=== PATIENT | female | born 1965 | race Caucasian/White ===

== ENCOUNTER 2016-12-07 22:32 | Emergency (ER) | payer OTHER ==
[~2016-12-07] VITALS: Ht 170.2 cm; Wt 86.4 kg
[~2016-12-07 22:32] MED LIST: ADVAIR 100/501 DISK IH; ADVAIR 250/501 DISK IH; ADVAIR 500/501 DISK IH; AMBIEN10 MG; AMBIEN10 MG PO; AMBIEN5 M1 PO; ASPIRIN EC325 MG PO; ATARAX,VISTARIL50 MG PO; AVENTYL,PAMELOR10 MG PO; Ambien PO; Aspirin Chewable PO; BUDEPRION SR150 MG PO; BUSPAR15 MG PO; BUSPAR5 MG PO; BUSPIRONE HCL15 MG PO; CEPHALEXIN500 MG PO; CHANTIX0.5 MG PO; CHANTIX1 MG PO; CLINDAMYCIN HC300 MG PO; CLONAZEPAM1 M1 PO; CYCLOBENZAPRINE 10 M; CYCLOBENZAPRINE10 MG PO; CYTOMEL25 MCG PO; Cipro PO; DESYREL100 MG PO; DICLOFENAC SODI75 MG; DOCUSATE SODIU100 MG PO; EFFEXOR XR150 MG PO; ELAVIL10 MG PO; ENDOCET 5-3251 EACH; Ecotrin PO; Effexor XR; FLEXERIL10 MG PO; FOCALIN10 MG PO; GABAPENTIN300 MG PO; GABAPENTIN600 MG PO; HUMALOG100 UNIT/1 SC; HYDROCODON-ACE1 EACH; INDERAL60 MG PO; INJECT-EASE1 EACH MC; Inderal LA PO; KLONOPIN0.5 M1 PO; LAMICTAL100 MG PO; LATUDA120 MG PO; LATUDA80 MG PO; LEVAQUIN500 MG PO; LEVEMIR FL100 UNIT/1 SC; LEVEMIR100 UNIT/2 SC; LEVOFLOXACIN500 MG PO; LEVOTHROID50 MCG PO; LEVOTHYROXINE100 MCG PO; LEVOTHYROXINE125 MCG PO; LISINOPRIL10 MG PO; LISINOPRIL20 MG PO; LITHOBID300 MG PO; LOPRESSOR25 MG PO; LORTAB 5-500 T1 EACH PO; LYRICA100 MG PO; Lopid PO; MELOXICAM7.5 MG; METFORMIN HCL500 MG PO; MINIPRESS2 MG PO; MINIPRESS5 MG PO; MORPHINE SULFAT15 M1 PO; MOTRIN IB200 MG PO; MOTRIN800 MG PO; MS CONTIN,ORAMO15 M1 PO; NAPROSYN500 MG; NAPROXEN500 MG PO; NEURONTIN100 MG; NEURONTIN100 MG PO; OMEPRAZOLE40 M1 PO; OXCARBAZEPINE150 MG PO; OXECTA5 MG PO; OXYCODONE HCL10 MG PO; PANTOPRAZOLE SO40 MG PO; PERCOCET 10/1 TABLET PO; PHENERGAN12.5 M1 PO; PRAZOSIN HCL2 MG; PRAZOSIN HCL5 MG PO; PROPANALOL; PROPRANOLOL HCL60 MG; PROPRANOLOL HCL60 MG PO; PROTONIX40 MG PO; PROZAC20 M1 PO; RANITIDINE HCL150 MG PO; RAYOS5 MG PO; RIBASPHERE200 M1 PO; RIBAVIRIN200 M1 PO; RISPERDAL2 MG PO; ROZEREM8 MG PO; SEROQUEL XR150 MG PO; SOVALDI400 MG PO; SYNTHROID75 MCG PO; TAMSULOSIN HCL0.4 MG PO; TOPAMAX25 MG PO; TORADOL10 MG PO; TRAMADOL HCL50 MG; TRAZODONE HCL100 MG PO; TRAZODONE HCL50 MG PO; ULTRAM50 MG PO; VOLTAREN75 MG PO; WELLBUTRIN SR150 MG PO; WELLBUTRIN XL300 MG PO; XANAX0.5 MG PO; XARELTO1 EACH PO; XARELTO20 MG PO; ZANAFLEX4 MG PO; ZOFRAN4 MG PO; ZOLPIDEM TARTRA10 MG PO; ZYVOX600 MG PO; humalog SC; oxyCODONE PO
[2016-12-07 23:54] LABS: HEMATOCRIT 41.4 % (36.0-46.0); MCH 30.3 PG (29.0-34.0); MCHC 33.1 G/DL (30.0-36.0); MCV 91.6 FL (83-99); MEAN PLAT.VOLUME 9.5 uM^3 (9.5-12.4); PLATELET COUNT 359 K/uL (156-360); RBC DIS.WIDTH-CV 14.3 % (11.8-14.6); RBC DIS.WIDTH-SD 48.2 % (39-53); RED BLOOD COUNT 4.52 M/uL (3.80-5.20)
[2016-12-08 00:10] LABS: CHLORIDE 103 mEq/L (99-109); POTASSIUM 3.7 mEq/L (3.7-5.4); SODIUM 136 mEq/L (136-147)
[2016-12-08 00:11] LABS: GLUCOSE 100 mg/dL (70-99)
[2016-12-08 00:13] LABS: ANION GAP 7 MEQ/L (2-14)
[2016-12-08 00:15] LABS: GFR ESTIMATE (CALCULATED) > 59 mL/min/
[2016-12-08 00:16] LABS: TROP-I INTERPRETATION NEGATIVE; TROPONIN-I < 0.01 ng/mL (0.0-0.30); UREA NITROGEN (BUN) 13 mg/dL (9-23)
[2016-12-08 01:00] LABS: PROTHROMBIN TIME 10.1 (9.2-11.2); PTT 38.6 (25-32)
[2016-12-08 01:04] LABS: TOTAL BILIRUBIN 0.4 mg/dL (0.0-1.0)
[2016-12-08 01:05] LABS: ALKALINE PHOSPHATASE 121 IU/L (3-129)
[2016-12-08 01:07] LABS: DIRECT BILIRUBIN 0.2 mg/dL (0.0-0.3)
[2016-12-08 01:08] LABS: LIPASE 9 U/L (1.0-51.0)
[2016-12-08 02:16] LABS: ADD MIUA? YES; BILIRUBIN NEGATIVE; BLOOD MODERATE; COLOR YELLOW ((YELLOW)); GLUCOSE (STRIP) NEGATIVE; KETONES NEGATIVE; LEUKOCYTES NEGATIVE; NITRITE NEGATIVE; PROTEIN (STRIP) 30; SPECIFIC GRAVITY 1.023 (1.000-1.030)
[2016-12-08 02:21] LABS: BACTERIA RARE /HPF; EPITHELIAL CELLS RARE /HPF; MUCUS 2+ /LPF; RED BLOOD CELLS 20-30 /HPF (0-5); UCUL ADDED? NO; WHITE BLOOD CELLS 0-5 /HPF (0-5)
[2016-12-08] MEDS ORDERED: CARAFATE100 MG/ML PO (04:36)
[2016-12-08] MEDS ORDERED: ZOFRAN4 MG PO (04:38)
[2016-12-08] MEDS ORDERED: PEN-VEE K,VEET500 MG PO (04:38)
[2016-12-08 05:00] VITALS: BP 98/63
== END 2016-12-08 05:03 | disposition home or self-care (01) ==
LOC: EME 22:32
PROVIDERS: Emergency Medicine
DX: R10.9 Unspecified abdominal pain (principal); G89.29 Other chronic pain; M54.5 Low back pain; K21.9 Gastro-esophageal reflux disease without esophagitis; Z98.84 Bariatric surgery status; Z87.442 Personal history of urinary calculi; E03.9 Hypothyroidism, unspecified; E11.9 Type 2 diabetes mellitus without complications; I10 Essential (primary) hypertension; J44.9 Chronic obstructive pulmonary disease, unspecified; Z79.84 Long term (current) use of oral hypoglycemic drugs; F17.200 Nicotine dependence, unspecified, uncomplicated
CPT/HCPCS: 71020; 74177; 80048; 80076; 81003; 83605; 83690; 84484; 85027; 85610; 85730; 87040; 93005; 99281; 99285; C9113; J2270; J2405; J7030

== ENCOUNTER 2017-02-16 07:34 | Day surgery (SDC) | payer OTHER ==
[~2017-02-16] VITALS: Ht 167.6 cm; Wt 79.8 kg
[~2017-02-16 07:34] MED LIST changes: +CARAFATE100 MG/ML PO; +DICLOFENAC SODI50 MG PO; +GABAPENTIN800 MG PO; +LEXAPRO20 MG PO; +PEN-VEE K,VEET500 MG PO; +SEROQUEL100 MG PO
[2017-02-16] MEDS ORDERED: LEVO-T50 MCG PO (07:47)
== END 2017-02-16 09:00 | disposition home or self-care (01) ==
LOC: PAIN 07:34
DX: M47.26 Other spondylosis with radiculopathy, lumbar region (principal); M51.16 Intervertebral disc disorders with radiculopathy, lumbar region; M54.2 Cervicalgia; B18.2 Chronic viral hepatitis C; F41.8 Other specified anxiety disorders; K21.9 Gastro-esophageal reflux disease without esophagitis; I10 Essential (primary) hypertension; J44.9 Chronic obstructive pulmonary disease, unspecified; E78.00 Pure hypercholesterolemia, unspecified; E03.9 Hypothyroidism, unspecified; G47.33 Obstructive sleep apnea (adult) (pediatric); Z98.84 Bariatric surgery status; Z88.2 Allergy status to sulfonamides; F17.200 Nicotine dependence, unspecified, uncomplicated
CPT/HCPCS: J1100; J2250; J3010

== ENCOUNTER 2017-03-17 09:09 | Day surgery (SDC) | payer OTHER ==
[~2017-03-17] VITALS: Ht 167.6 cm; Wt 79.4 kg
[~2017-03-17 09:09] MED LIST changes: +LEVO-T50 MCG PO
== END 2017-03-17 10:55 | disposition home or self-care (01) ==
LOC: PAIN 09:09
DX: M47.26 Other spondylosis with radiculopathy, lumbar region (principal); M51.16 Intervertebral disc disorders with radiculopathy, lumbar region; M48.06 Spinal stenosis, lumbar region; I10 Essential (primary) hypertension; E11.65 Type 2 diabetes mellitus with hyperglycemia; E03.9 Hypothyroidism, unspecified; F32.9 Major depressive disorder, single episode, unspecified; B18.2 Chronic viral hepatitis C; G47.33 Obstructive sleep apnea (adult) (pediatric); F17.200 Nicotine dependence, unspecified, uncomplicated; Z79.891 Long term (current) use of opiate analgesic
CPT/HCPCS: J1100; J1885; J2250; J3010

== ENCOUNTER 2017-05-05 21:05 | Observation (INO) | payer OTHER ==
[~2017-05-05] VITALS: Ht 167.6 cm; Wt 81.1 kg
[2017-05-05 21:41] LABS: HEMATOCRIT 32.3 % (36.0-46.0); MCH 30.8 PG (29.0-34.0); MCHC 32.8 G/DL (30.0-36.0); MCV 93.9 FL (83-99); PLATELET COUNT 190 K/uL (156-360); RBC DIS.WIDTH-CV 17.2 % (11.8-14.6); RBC DIS.WIDTH-SD 59.7 % (39-53); RED BLOOD COUNT 3.44 M/uL (3.80-5.20); WHITE BLOOD COUNT 6.3 K/uL (4.1-10.2)
[2017-05-05 21:50] LABS: PROTHROMBIN TIME 11.9 SEC (10.2-12.9)
[2017-05-05 21:53] LABS: PTT 25.3 SEC (25-37)
[2017-05-05 21:54] LABS: CHLORIDE 115 mEq/L (99-109); POTASSIUM 3.4 mEq/L (3.7-5.4); SODIUM 144 mEq/L (136-147)
[2017-05-05 21:55] LABS: GLUCOSE 98 mg/dL (70-99)
[2017-05-05 21:57] LABS: ANION GAP 9 MEQ/L (2-14)
[2017-05-05 21:59] LABS: GFR ESTIMATE (CALCULATED) > 59 mL/min/
[2017-05-05 22:00] LABS: UREA NITROGEN (BUN) 6 mg/dL (9-23)
[2017-05-05 22:04] LABS: TROP-I INTERPRETATION NEGATIVE; TROPONIN-I < 0.01 ng/mL (0.0-0.30)
[2017-05-05] MEDS ORDERED: LEXAPRO10 MG PO (22:40)
[2017-05-05] MEDS ORDERED: DEXILANT60 MG PO (22:41)
[2017-05-05] MEDS ORDERED: ATARAX,VISTARIL25 MG PO (22:41)
[2017-05-05] MEDS ORDERED: MORPHINE SULFAT15 M1 PO (22:42)
[2017-05-05] MEDS ORDERED: INDOCIN50 MG PO (22:42)
[2017-05-05 22:46] LABS: TOTAL BILIRUBIN 0.1 mg/dL (0.0-1.0)
[2017-05-05 22:48] LABS: ALKALINE PHOSPHATASE 88 IU/L (3-129); SERUM ETHYL ALCOHOL < 10 mg/dL
[2017-05-05 22:50] LABS: DIRECT BILIRUBIN 0.1 mg/dL (0.0-0.3)
[2017-05-06 00:51] VITALS: BP 124/83
[2017-05-06 04:10] VITALS: BP 99/50
[2017-05-06 08:30] VITALS: BP 123/77
[2017-05-06 09:07] LABS: POINT-OF-CARE METER ID UU13113700
[2017-05-06 10:37] LABS: HEMATOCRIT 32.6 % (36.0-46.0); MCH 30.3 PG (29.0-34.0); MCHC 31.9 G/DL (30.0-36.0); MEAN PLAT.VOLUME 10.2 uM^3 (9.5-12.4); PLATELET COUNT 216 K/uL (156-360); RBC DIS.WIDTH-CV 17.5 % (11.8-14.6); RBC DIS.WIDTH-SD 61.4 % (39-53); RED BLOOD COUNT 3.43 M/uL (3.80-5.20); WHITE BLOOD COUNT 5.5 K/uL (4.1-10.2)
[2017-05-06 10:58] LABS: TROP-I INTERPRETATION NEGATIVE; TROPONIN-I < 0.01 ng/mL (0.0-0.30)
[2017-05-06 11:12] LABS: ALKALINE PHOSPHATASE 80 IU/L (3-129); ANION GAP 5 MEQ/L (2-14); CHLORIDE 117 MEQ/L (99-109); GFR ESTIMATE (CALCULATED) > 59 mL/min/; GLUCOSE 97 mg/dL (70-99); SAMPLE HEMOLYSIS CHECK 0; SAMPLE ICTERIC CHECK 0; SAMPLE LIPEMIA CHECK 0; SODIUM 144 MEQ/L (136-147); TOTAL BILIRUBIN 0.2 MG/DL (0.0-1.0); UREA NITROGEN (BUN) 6 mg/dL (9-23)
[2017-05-06 11:13] LABS: Estimated Average Glucose 94 mg/dL (70-123); HEMOGLOBIN A1c (GLYCOHEMOGLOB) 4.9 % HGB (Below 5.7); POTASSIUM 4.3 MEQ/L (3.7-5.4)
[2017-05-06 11:27] VITALS: BP 120/74
[2017-05-06 11:29] VITALS: BP 125/77; BP 125/80
== END 2017-05-06 14:03 | disposition home or self-care (01) ==
LOC: EME → EDBD 21:05 → EDOF 22:28 → 5WEST 22:28 → ENRESERV 22:30 → 5WEST 05-06 00:29
PROVIDERS: Emergency Medicine; Hospitalist; Physician Assistant Medical
DX: I95.1 Orthostatic hypotension (principal); I71.2 Thoracic aortic aneurysm, without rupture; Z98.84 Bariatric surgery status; Z86.711 Personal history of pulmonary embolism; R47.81 Slurred speech; I48.0 Paroxysmal atrial fibrillation; F31.9 Bipolar disorder, unspecified; F41.9 Anxiety disorder, unspecified; Z91.5 Personal history of self-harm; B19.20 Unspecified viral hepatitis C without hepatic coma; G89.29 Other chronic pain; J44.9 Chronic obstructive pulmonary disease, unspecified; E78.5 Hyperlipidemia, unspecified; F17.210 Nicotine dependence, cigarettes, uncomplicated; G47.33 Obstructive sleep apnea (adult) (pediatric); Z91.19 Patient's noncompliance with other medical treatment and regimen; E11.9 Type 2 diabetes mellitus without complications; E03.9 Hypothyroidism, unspecified; Z87.442 Personal history of urinary calculi; F19.11 Other psychoactive substance abuse, in remission; Z79.891 Long term (current) use of opiate analgesic; E66.3 Overweight; Z68.28 Body mass index [BMI] 28.0-28.9, adult; E87.6 Hypokalemia; E87.8 Other disorders of electrolyte and fluid balance, not elsewhere classified; D64.9 Anemia, unspecified; Z82.49 Family history of ischemic heart disease and other diseases of the circulatory system; Z88.5 Allergy status to narcotic agent; Z88.2 Allergy status to sulfonamides
CPT/HCPCS: 70450; 71020; 71275; 80048; 80053; 80076; 81003; 82948; 83036; 83880; 84443; 84484; 85027; 85379; 85610; 85730; 93005; 94640; 99281; 99285; G0378; G0480; J1650; J3480; J7030; S0028

== ENCOUNTER 2017-07-06 16:27 | Emergency (ER) | payer OTHER ==
[~2017-07-06] VITALS: Ht 167.6 cm; Wt 76.6 kg
[~2017-07-06 16:27] MED LIST changes: +ATARAX,VISTARIL25 MG PO; +DEXILANT60 MG PO; +INDOCIN50 MG PO; +LEXAPRO10 MG PO
[2017-07-06 17:22] LABS: HEMATOCRIT 32.3 % (36.0-46.0); HEMOGLOBIN 10.9 G/DL (11.9-15.5); MCH 30.7 PG (29.0-34.0); MCHC 33.7 G/DL (30.0-36.0); PLATELET COUNT 419 K/uL (156-360); RBC DIS.WIDTH-CV 14.2 % (11.8-14.6); RBC DIS.WIDTH-SD 47.5 % (39-53); RED BLOOD COUNT 3.55 M/uL (3.80-5.20); WHITE BLOOD COUNT 8.1 K/uL (4.1-10.2)
[2017-07-06 17:33] LABS: CHLORIDE 107 mEq/L (99-109); POTASSIUM 3.1 mEq/L (3.7-5.4); SODIUM 142 mEq/L (136-147)
[2017-07-06 17:34] LABS: GLUCOSE 81 mg/dL (70-99)
[2017-07-06 17:38] LABS: CREATININE 0.7 mg/dL (0.6-1.3); GFR ESTIMATE (CALCULATED) > 59 mL/min/
[2017-07-06 17:39] LABS: UREA NITROGEN (BUN) 10 mg/dL (9-23)
[2017-07-06 17:49] LABS: TROP-I INTERPRETATION NEGATIVE; TROPONIN-I < 0.01 ng/mL (0.0-0.30)
[2017-07-06 18:41] LABS: ALBUMIN 2.7 g/dL (3.2-4.8)
[2017-07-06 18:44] LABS: TOTAL PROTEIN 5.6 g/dL (6.4-8.3)
[2017-07-06 18:46] LABS: TOTAL BILIRUBIN 0.1 mg/dL (0.0-1.0)
[2017-07-06 18:47] LABS: ALKALINE PHOSPHATASE 96 IU/L (3-129)
[2017-07-06 18:49] LABS: AST (GOT) 17 IU/L (2-34)
[2017-07-06 18:50] LABS: ALT (GPT) 11 IU/L (3-49); DIRECT BILIRUBIN 0.1 mg/dL (0.0-0.3)
[2017-07-06 18:51] LABS: LIPASE 6 U/L (1.0-51.0)
[2017-07-06] MEDS ORDERED: PEPCID20 MG PO (19:39)
[2017-07-06] MEDS ORDERED: ULTRAM50 MG PO (19:39)
[2017-07-06 20:39] LABS: TROP-I INTERPRETATION NEGATIVE; TROPONIN-I < 0.01 ng/mL (0.0-0.30)
[2017-07-06 21:52] VITALS: BP 111/68
== END 2017-07-06 21:53 | disposition left against medical advice (07) ==
LOC: EME 16:27
PROVIDERS: Physician Assistant
DX: J18.9 Pneumonia, unspecified organism (principal); R07.9 Chest pain, unspecified; I71.2 Thoracic aortic aneurysm, without rupture; F17.200 Nicotine dependence, unspecified, uncomplicated; I12.9 Hypertensive chronic kidney disease with stage 1 through stage 4 chronic kidney disease, or unspecified chronic kidney disease; E11.22 Type 2 diabetes mellitus with diabetic chronic kidney disease; N18.9 Chronic kidney disease, unspecified; F32.9 Major depressive disorder, single episode, unspecified; F41.9 Anxiety disorder, unspecified; J45.909 Unspecified asthma, uncomplicated; B19.20 Unspecified viral hepatitis C without hepatic coma; K21.9 Gastro-esophageal reflux disease without esophagitis; G47.30 Sleep apnea, unspecified; Z98.84 Bariatric surgery status; Z87.442 Personal history of urinary calculi; Z88.2 Allergy status to sulfonamides; Z88.5 Allergy status to narcotic agent
CPT/HCPCS: 71046; 71275; 80048; 80076; 83690; 84484; 85027; 93005; 99281; 99284

== ENCOUNTER 2017-11-05 08:23 | Day surgery (SDC) | payer OTHER ==
[~2017-11-05] VITALS: Ht 170.2 cm; Wt 68.0 kg
[~2017-11-05 08:23] MED LIST changes: +PEPCID20 MG PO
[2017-11-05] MEDS ORDERED: FLEXERIL10 MG PO (08:48)
[2017-11-05] MEDS ORDERED: ABILIFY2 MG PO (08:48)
[2017-11-05] MEDS ORDERED: DURAGESIC25 MCG TD (08:48)
== END 2017-11-05 09:45 | disposition home or self-care (01) ==
LOC: PAIN 08:23 → SDC 08:45 → PAIN 08:45
PROC: 3E0T3BZ Introduction of Anesthetic Agent into Peripheral Nerves and Plexi, Percutaneous Approach (ICD-10-PCS; principal; 2017-11-05)
PROC: BR161ZZ Fluoroscopy of Lumbar Facet Joint(s) using Low Osmolar Contrast (ICD-10-PCS; principal; 2017-11-05)
PROC: 3E0T33Z Introduction of Anti-inflammatory into Peripheral Nerves and Plexi, Percutaneous Approach (ICD-10-PCS; principal; 2017-11-05)
DX: M47.816 Spondylosis without myelopathy or radiculopathy, lumbar region (principal); M47.16 Other spondylosis with myelopathy, lumbar region; Z79.891 Long term (current) use of opiate analgesic; R20.0 Anesthesia of skin; F17.200 Nicotine dependence, unspecified, uncomplicated; F32.9 Major depressive disorder, single episode, unspecified; F41.9 Anxiety disorder, unspecified; E78.5 Hyperlipidemia, unspecified; E03.9 Hypothyroidism, unspecified; Z98.84 Bariatric surgery status; I71.4 Abdominal aortic aneurysm, without rupture; G47.30 Sleep apnea, unspecified; B18.2 Chronic viral hepatitis C
CPT/HCPCS: 84132; J1030; J2250; S0020

== ENCOUNTER 2017-12-09 17:56 | Emergency (ER) | payer OTHER ==
[~2017-12-09] VITALS: Ht 167.6 cm; Wt 63.2 kg
[~2017-12-09 17:56] MED LIST changes: +ABILIFY2 MG PO; +DURAGESIC25 MCG TD
[2017-12-09 19:40] LABS: CARBON DIOXIDE (BICARBONATE) 29.7 MEQ/L (20-31)
[2017-12-09 19:47] LABS: ALBUMIN 2.7 g/dL (3.2-4.8)
[2017-12-09 19:48] LABS: CHLORIDE 105 mEq/L (99-109); SODIUM 138 mEq/L (136-147)
[2017-12-09 19:49] LABS: BASOPHIL (%) 0.4 % (0-1); EOSINOPHIL (%) 5.1 % (0-5); EOSINOPHIL COUNT 0.5 K/uL (0-0.3); HEMATOCRIT 19.9 % (36.0-46.0); HEMOGLOBIN 6.3 G/DL (11.9-15.5); IMMATURE GRANULOCYTE (%) 0.6 % (0.0-0.7); LYMPHOCYTE (%) 16.5 % (15-42); LYMPHOCYTE COUNT 1.6 K/uL (1.0-2.8); MCH 24.8 PG (29.0-34.0); MCHC 31.7 G/DL (30.0-36.0); MCV 78.3 FL (83-99); MONOCYTE (%) 8.6 % (3-12); MONOCYTE COUNT 0.8 K/uL (0-0.8); NEUTROPHIL (%) 68.8 % (45-76); NEUTROPHIL COUNT 6.5 K/uL (1.8-6.4); PLATELET COUNT 422 K/uL (156-360); RBC DIS.WIDTH-CV 16.9 % (11.8-14.6); RBC DIS.WIDTH-SD 48.3 % (39-53); RED BLOOD COUNT 2.54 M/uL (3.80-5.20); WHITE BLOOD COUNT 9.5 K/uL (4.1-10.2)
[2017-12-09 19:50] LABS: GLUCOSE 101 mg/dL (70-99); TOTAL PROTEIN 6.7 g/dL (6.4-8.3)
[2017-12-09 19:52] LABS: TOTAL BILIRUBIN 0.2 mg/dL (0.0-1.0)
[2017-12-09 19:53] LABS: ALKALINE PHOSPHATASE 145 IU/L (3-129)
[2017-12-09 19:54] LABS: CREATININE 0.7 mg/dL (0.6-1.3); GFR ESTIMATE (CALCULATED) > 59 mL/min/
[2017-12-09 19:54] LABS: AMPHETAMINE NEGATIVE (500 ng/mL); BARBITURATES NEGATIVE (200 ng/mL); BENZODIAZEPINES NEGATIVE (150 ng/mL); BUPRENORPHINE NEGATIVE (10 ng/mL); COCAINE PRESUMPTIVE POSITIVE (150 ng/mL); METHADONE NEGATIVE (200 ng/mL); METHAMPHETAMINE NEGATIVE (500 ng/mL); OPIATES (MORPHINE) NEGATIVE (100 ng/mL); OXYCODONE NEGATIVE (100 ng/mL); PHENCYCLIDINE NEGATIVE (25 ng/mL); PROPOXYPHENE NEGATIVE (300 ng/mL); THC CANNABINOIDS NEGATIVE (50 ng/mL); TRICYCLIC ANTIDEPRESSANTS PRESUMPTIVE POSITIVE (300 ng/mL)
[2017-12-09 19:55] LABS: AST (GOT) 8 IU/L (2-34); UREA NITROGEN (BUN) 10 mg/dL (9-23)
[2017-12-09 19:57] LABS: ALT (GPT) 6 IU/L (3-49); LIPASE 25 U/L (1.0-51.0)
[2017-12-09 20:05] LABS: TROP-I INTERPRETATION NEGATIVE; TROPONIN-I < 0.01 ng/mL (0.0-0.30)
[2017-12-09 23:43] VITALS: BP 101/55
[2017-12-09 23:58] VITALS: BP 91/50
[2017-12-10 00:58] VITALS: BP 92/48
[2017-12-10 01:58] VITALS: BP 83/52
[2017-12-10 02:36] VITALS: BP 91/55
[2017-12-10 05:14] LABS: HEMATOCRIT 20.7 % (36.0-46.0); HEMOGLOBIN 6.5 G/DL (11.9-15.5); MCV 81.2 FL (83-99)
[2017-12-10 05:38] VITALS: BP 95/59
== END 2017-12-10 05:39 | disposition short-term general hospital (02) ==
LOC: EME 17:56
PROVIDERS: Emergency Medicine
PROC: 30233N1 Transfusion of Nonautologous Red Blood Cells into Peripheral Vein, Percutaneous Approach (ICD-10-PCS; principal; 2017-12-09)
DX: K31.6 Fistula of stomach and duodenum (principal); Z98.84 Bariatric surgery status; D64.9 Anemia, unspecified; F14.10 Cocaine abuse, uncomplicated; E87.6 Hypokalemia; I71.2 Thoracic aortic aneurysm, without rupture; K92.2 Gastrointestinal hemorrhage, unspecified; R55 Syncope and collapse; E86.1 Hypovolemia; R06.02 Shortness of breath; R42 Dizziness and giddiness; Z91.81 History of falling; Z90.49 Acquired absence of other specified parts of digestive tract; Z87.442 Personal history of urinary calculi; J44.9 Chronic obstructive pulmonary disease, unspecified; I12.9 Hypertensive chronic kidney disease with stage 1 through stage 4 chronic kidney disease, or unspecified chronic kidney disease; E11.22 Type 2 diabetes mellitus with diabetic chronic kidney disease; N18.9 Chronic kidney disease, unspecified; Z88.2 Allergy status to sulfonamides; F17.200 Nicotine dependence, unspecified, uncomplicated
CPT/HCPCS: 71275; 74177; 80053; 82803; 83690; 84484; 84999; 85014; 85018; 85025; 86850; 86900; 86901; 86920; 93005; 99281; 99285; C9113; J7030; P9016

== ENCOUNTER 2017-12-29 12:33 | Emergency (ER) | payer OTHER ==
[~2017-12-29] VITALS: Ht 167.6 cm; Wt 68.0 kg
[2017-12-29 12:46] VITALS: BP 110/68
== END 2017-12-29 14:45 | disposition left against medical advice (07) ==
LOC: EME 12:33
DX: Z45.2 Encounter for adjustment and management of vascular access device (principal); Z53.21 Procedure and treatment not carried out due to patient leaving prior to being seen by health care provider
CPT/HCPCS: 99281; 99283

== ENCOUNTER 2018-01-01 10:25 | Emergency (ER) | payer OTHER ==
[~2018-01-01] VITALS: Ht 170.2 cm; Wt 69.0 kg
[2018-01-01 13:44] LABS: HEMATOCRIT 30.8 % (36.0-46.0); HEMOGLOBIN 9.6 G/DL (11.9-15.5); MCH 27.6 PG (29.0-34.0); MCHC 31.2 G/DL (30.0-36.0); MCV 88.5 FL (83-99); RBC DIS.WIDTH-CV 21.8 % (11.8-14.6); RBC DIS.WIDTH-SD 70.7 % (39-53); RED BLOOD COUNT 3.48 M/uL (3.80-5.20); WHITE BLOOD COUNT 7.9 K/uL (4.1-10.2)
[2018-01-01 13:50] LABS: ALBUMIN 3.4 g/dL (3.2-4.8); CHLORIDE 108 mEq/L (99-109); POTASSIUM 3.5 mEq/L (3.7-5.4); SODIUM 139 mEq/L (136-147)
[2018-01-01 13:52] LABS: GLUCOSE 89 mg/dL (70-99)
[2018-01-01 13:54] LABS: TOTAL BILIRUBIN 0.4 mg/dL (0.0-1.0)
[2018-01-01 13:56] LABS: ALKALINE PHOSPHATASE 110 IU/L (3-129); CREATININE 0.7 mg/dL (0.6-1.3); GFR ESTIMATE (CALCULATED) > 59 mL/min/
[2018-01-01 13:57] LABS: UREA NITROGEN (BUN) 10 mg/dL (9-23)
[2018-01-01 13:58] LABS: AST (GOT) 13 IU/L (2-34)
[2018-01-01 13:59] LABS: ALT (GPT) 12 IU/L (3-49)
[2018-01-01 14:35] LABS: PLAT.SUFFICIENCY ADEQUATE; PLATELET COUNT 223 K/uL (156-360)
[2018-01-01 14:46] LABS: FERRITIN 50 NG/ML (10-291)
[2018-01-01 14:57] VITALS: BP 110/72
== END 2018-01-01 14:59 | disposition home or self-care (01) ==
LOC: EME 10:25
PROVIDERS: Nurse Practitioner Family
DX: Z45.2 Encounter for adjustment and management of vascular access device (principal); Z87.19 Personal history of other diseases of the digestive system; Z98.84 Bariatric surgery status; D64.9 Anemia, unspecified; F14.10 Cocaine abuse, uncomplicated; F19.10 Other psychoactive substance abuse, uncomplicated; F17.200 Nicotine dependence, unspecified, uncomplicated
CPT/HCPCS: 71046; 80053; 82728; 85027; 87070; 99281; 99284

== ENCOUNTER 2018-01-17 23:34 | Emergency (ER) | payer OTHER ==
[~2018-01-17] VITALS: Ht 170.2 cm; Wt 69.6 kg
[2018-01-18 02:52] VITALS: BP 110/70
== END 2018-01-18 02:53 | disposition home or self-care (01) ==
LOC: EME 23:34
DX: L76.34 Postprocedural seroma of skin and subcutaneous tissue following other procedure (principal); Y83.8 Other surgical procedures as the cause of abnormal reaction of the patient, or of later complication, without mention of misadventure at the time of the procedure; Z98.84 Bariatric surgery status; I12.9 Hypertensive chronic kidney disease with stage 1 through stage 4 chronic kidney disease, or unspecified chronic kidney disease; N18.9 Chronic kidney disease, unspecified; F32.9 Major depressive disorder, single episode, unspecified; F41.9 Anxiety disorder, unspecified; J45.909 Unspecified asthma, uncomplicated; K21.9 Gastro-esophageal reflux disease without esophagitis; Z88.5 Allergy status to narcotic agent; Z88.2 Allergy status to sulfonamides; F17.200 Nicotine dependence, unspecified, uncomplicated
CPT/HCPCS: 76881; 99281; 99284